=== PATIENT | female | born 1990 | race Caucasian/White ===

== ENCOUNTER → 2021-09-28 15:33 | Outpatient (CLI) | payer BC, SELFPAY ==
--- NOTE | ~2021-09-28 | US_ITS ---
EXAMINATION: US OB transvaginal EXAM DATE: 09/28/2021 15:58 INDICATION: Uncertain dates. 1st trimester. TECHNIQUE: Pelvic obstetrical transvaginal sonogram was performed by a technologist. There are [facility] grayscale and Doppler images available for interpretation. There are no earlier studies of this gestation for comparison. FINDINGS: Uterus measures 6.4 x 4.9 x 5.0 cm. There is intrauterine gestation sac. pole with heart rate confirmed at 169 beats per minute. The 1.6 cm crown-rump length corresponds to estimated gestational age by ultrasound of 8 weeks 0 days, estimated date of confinement 05/10. Yolk sac is id entified. There is no sonographic evidence of subchorionic hemorrhage. The ovaries are morphologi toan normal. IMPRESSION: Live intrauterine gestation, age by ultrasound 8 weeks 0 days. Reviewed, dictated and finalized at location B.
== END ==
PROVIDERS: Visit Provider Obstetrics & Gynecology Gynecology
DX: Z36.9 Encounter for antenatal screening, unspecified (principal); Z3A.08 8 weeks gestation of pregnancy
CPT/HCPCS: 76817

== ENCOUNTER 2021-12-12 14:45 | Outpatient (CLI) | payer BC, SELFPAY ==
--- NOTE | ~2021-12-12 | US_ITS ---
US OB /maternal detail DATE: 12/12/2021 15:46 INDICATION: anatomy screen TECHNIQUE: anatomy screen COMPARISON: Real-time imaging and Doppler analysis FINDINGS: Live hendrix intrauterine gestation, fetus in longitudinal lie, breech presentation with heart rate of 148 bpm. Anterior placenta, lower margin 5.7 cm above the cervix. Subjectively normal amount of amniotic fluid. cerebral ventricles, cerebellum, cisterna magna and nuchal fold appear normal. The spine is intact on transverse and longitudinal images. upper lip is normal. Four-pankaj bc heart with normal left and right ventricular outflow tracts. Intact diaphragm. Fluid is demonstrated in the stomach and urinary bladder. The kidneys are unremarkable wi thout hydronephrosis. Three-vessel umbilical cord with normal insertion. Normal extremities Biparietal diameter 4.30 cm; 19 weeks 0 days Head circumference 16.21 cm; 19 weeks 0 days Abdominal circumference 14.38 cm; 19 weeks 5 days Femur length 2.79 cm; 18 weeks 4 days Composite age by Hadlock formula is 19 weeks 1 day +/- 1 week 2 days with COMPA of 05/07/2022, compared to 05/10/2022 by LMP. Estimated weight is 275.9 +/- 41.4 g. Head circumference/abdominal circumference 1.13, within normal range of 1.09-1.26 Femur length/head circumference 17.19, within normal range of 16.205 and 18.51 IMPRESSION: Normal anatomy screen Breech presentation Estimated gestational age is 19 weeks 1 day +/- 1 week 2 days with COMPA of 05/07/2022 Reviewed, dictated and finalized at Location A. Reviewed, dictated and finalized at location B.
== END 2021-12-12 14:46 ==
PROVIDERS: PCP Nurse Practitioner; Visit Provider Nurse Practitioner
DX: Z36.9 Encounter for antenatal screening, unspecified (principal); Z3A.19 19 weeks gestation of pregnancy
CPT/HCPCS: 76805

== ENCOUNTER 2022-02-10 12:49 | Outpatient (RCR) | payer BC, SELFPAY ==
[2022-02-10 14:29] LABS: Hematocrit 33.9 % (37.0-47.0); Hemoglobin 11.8 g/dL (12.0-15.0)
[2022-02-10 14:43] LABS: Glucose 1 Hour PP 50gm Dose 134 mg/dL
[2022-02-10 15:00] LABS: Vitamin D 25 Hydroxy 61.5 ng/mL
[2022-02-10 15:25] LABS: HIV 1/2 Ab P24 Ag Result Negative (Negative)
[2022-02-10] MEDS: RHO(D) IMMUNE GLOBULIN 300 MCG/2 ML SYRINGE IM (17:02)
== END 2022-05-11 23:59 | disposition home or self-care (01) ==
LOC: ANHLAB 12:49
PROVIDERS: PCP Obstetrics & Gynecology Gynecology; Visit Provider Obstetrics & Gynecology Gynecology
DX: Z11.4 Encounter for screening for human immunodeficiency virus [HIV] (principal); Z29.13 Encounter for prophylactic Rho(D) immune globulin; O36.0190 Maternal care for anti-D [Rh] antibodies, unspecified trimester, not applicable or unspecified; Z3A.00 Weeks of gestation of pregnancy not specified
CPT/HCPCS: 36415; 82306; 82947; 85014; 85018; 85461; 86703; 90384; 96372; G0432; J2790

== ENCOUNTER 2022-02-24 07:15 | Outpatient (CLI) | payer BC, SELFPAY ==
[2022-02-24 07:44] LABS: Glucose Fasting Gestational 88 mg/dL (>/=95)
[2022-02-24 09:20] LABS: Glucose 1 Hour Gest 173 mg/dL (>/=180)
[2022-02-24 10:10] LABS: Glucose 2 Hour Gest 138 mg/dL (>/= 155)
[2022-02-24 11:55] LABS: Glucose 3 Hour Gest 116 mg/dL (>/=140)
== END 2022-02-24 07:16 | disposition home or self-care (01) ==
LOC: ANHLAB 07:17
PROVIDERS: PCP Obstetrics & Gynecology Gynecology; Visit Provider Obstetrics & Gynecology Gynecology
DX: O99.810 Abnormal glucose complicating pregnancy (principal); Z3A.00 Weeks of gestation of pregnancy not specified
CPT/HCPCS: 36415; 82951; 82952

== ENCOUNTER → 2022-03-23 13:32 | Outpatient (CLI) | payer BC, SELFPAY ==
--- NOTE | ~2022-03-23 | US_ITS ---
EXAMINATION: US OB follow up DATE: 03/23/2022 13:58 INDICATION: Size greater than dates. TECHNIQUE: Multiple obstetric sonographic images performed. FINDINGS: Comparison to multiple prior studies sequentially, with oldest reviewed study dated 022. There is a single living fetus in vertex presentation. The placenta is anterior without placenta pre via. Placental margin is a 0.9 cm to the cervix Amniotic fluid volume is normal. NIELS measures 17.6 cm cm. cardiac activity and movement is noted with a heart rate of beats per minute. The following biometric data were obtained: BPD: 88mm corresponds to gestational age 35 weeks 3 days. Head circumference: 319 mm corresponds to gestational age 36 weeks 0 days. Abdominal circumference: 306 mm corresponds to gestational age 34 weeks 4 days. Femur length: 63 mm corresponds to gestational age 32 weeks 5 days. Head circumference to abdominal circumference ratio: 1.04 (normal range for expected gestational age is 0.93-1.11). Estimated weight: 2396 grams +/- 359 grams using Hadlock method, 76.7% by Hadlock method. IMPRESSION: 1: Single living intrauterine with an estimated gestational age of 33weeks 1days by initial ultrasound measurements, with an EDC of 05/10/2022 in vertex presentation. Estimated weight wi thin normal limits measuring 76.7% by Hadlock method. 2: Normal NIELS measures 17.6 cm. Reviewed, dictated and finalized at location A. IMPRESSION: 1: Single living intrauterine with an estimated gestational age of 33 weeks 1days by initial ultrasound measurements, with an EDC of 05/10/2022 in ve rtex presentation. Estimated weight within normal limits measuring 76.7% by Hadlock method. 2: Normal NIELS measures 17.6 cm.
== END ==
PROVIDERS: PCP Obstetrics & Gynecology Gynecology; Visit Provider Obstetrics & Gynecology Gynecology
DX: O36.63X0 Maternal care for excessive fetal growth, third trimester, not applicable or unspecified (principal); Z3A.00 Weeks of gestation of pregnancy not specified
CPT/HCPCS: 76816

== ENCOUNTER 2022-05-04 04:45 | Inpatient (IN) | payer BC, SELFPAY ==
[2022-05-04] VITALS (84 sets, daily range): BP systolic 93–157; BP diastolic 31–98; PULSE 68–117; TEMP 36.2–37.2; O2SAT 93–100; BMI 42.1
--- NOTE | 2022-05-04 05:08 | LDADM ---
This patient, Elaine Cuellar, was admitted to Labor/Delivery/Recovery 103 on 05/04/22 at 04:45. Plans for labor, pain management and were discussed with patient. Patient/family oriented to hospital policies and general routines including ID bracelet, bed and alarms, visiting hours, pain management, procedures, bathroom and other care routines, personal items, smoking policy, room service/diet and guest tray routines, infant security routines, and visiting hours. Patient/Family are encouraged to report perceived risks to care and to ask questions if they do not understand what they are told or what they should do. See OBIX for further documentation.
[2022-05-04] MEDS: LACTATED RINGERS 1,000 ML 125 ML IV CONT ×3 (05:39→23:35)
[2022-05-04] MEDS: OXYTOCIN 30 UNITS/NS 500 ML 30 UNITS/500 ML BAG 6 UNITS IV CONT (05:40)
[2022-05-04 05:48] LABS: Basophils Percent Auto 0.3 % (0.2-1.2); Eosinophils Absolute Auto 0.1 K/mm3 (0-0.3); Eosinophils Percent Auto 0.9 % (0-4.4); Hematocrit 34.6 % (37.0-47.0); Immature Granulocyte Absolute 0.08 K/mm3 (0.00-0.031); Immature Granulocyte Percent A 0.8 % (0-0.5); Lymphocytes Absolute Auto 2.31 K/mm3 (0.9-3.2); Lymphocytes Percent Auto 22.7 % (18.3-44.2); Mean Corpuscular HGB Conc 34.7 g/dl (32-36); Mean Corpuscular Hemoglobin 29.5 pg (26-34); Mean Platelet Volume 10.5 fl (7.4-10.4); Monocytes Absolute Auto 0.9 K/mm3 (0.1-0.6); Monocytes Percent Auto 9.1 % (2.6-8.5); Neutrophils Absolute Auto 6.7 K/mm3 (1.3-6.7); Neutrophils Percent Auto 66.2 % (45.5-73.1); Platelet Count Result 215 k/mm3 (150-375); Red Blood Count 4.07 M/mm3 (4.2-5.4); Red Cell Distribution Width 13.2 % (11.5-14.5); White Blood Count 10.2 K/mm3 (4.5-10.0)
--- NOTE | 2022-05-04 05:56 | WPDANESEPP ---
Anes - Eval Pre Procedure Procedure: Labor epidural Date/Time: 05/04/22 05:56 Surgeon: Anita Preop Diagnosis: Abdominal pain with contractions Pre Op Diagnosis: IOL Patient Data Age: 32 Gender: F Height: 1.68 m Weight: 118.5 kg Last Vital Signs Pulse 99 05/04/22 05:45 BP 140/90 05/04/22 05:45 O2 Del Method Room Air 05/04/22 05:07 Allergies Allergy/AdvReac Type Severity Reaction Status Date / Time No Known Allergies Allergy Verified 04/06/22 13:31 Home Medications Medication Instructions Recorded Confirmed Type cholecalciferol (vitamin D3) 50 50 unit PO KVO 04/06/22 04/06/22 History mcg (2,000 unit) tablet (Vitamin D3) levothyroxine 25 mcg tablet 25 mcg PO DAILY 04/06/22 04/06/22 History prenat.vits,bienvenido,fwi-sxso-nwsui 1 tablet PO DAILY 04/06/22 04/06/22 History Laboratory Tests 05/04/22 05/04/22 04:56 04:57 WBC 10.2 K/mm3 H K/mm3 (4.5-10.0) RBC 4.07 M/mm3 L M/mm3 (4.2-5.4) Hgb 12.0 g/dL g/dL (12.0-15.0) Hct 34.6 % L % (37.0-47.0) MCV 85.0 fl fl (80-100) MCH 29.5 pg pg (26-34) MCHC 34.7 g/dl g/dl (32-36) RDW 13.2 % % (11.5-14.5) Plt Count 215 k/mm3 k/mm3 (150-375) MPV 10.5 fl H fl (7.4-10.4) Immature Gran % (Auto) 0.8 % H % (0-0.5) Neut % (Auto) 66.2 % % (45.5-73.1) Lymph % (Auto) 22.7 % % (18.3-44.2) [place] % (Auto) 9.1 % H % (2.6-8.5) Eos % (Auto) 0.9 % % (0-4.4) Baso % (Auto) 0.3 % % (0.2-1.2) Lymph # (Auto) 2.31 K/mm3 K/mm3 (0.9-3.2) [place] # (Auto) 0.9 K/mm3 H K/mm3 (0.1-0.6) Eos # (Auto) 0.1 K/mm3 K/mm3 (0-0.3) Baso # (Auto) 0.0 K/mm3 K/mm3 (0.0-0.1) Abs Immat Gran (auto) 0.08 K/mm3 H K/mm3 (0.00-0.031) Absolute Neuts (auto) 6.7 K/mm3 K/mm3 (1.3-6.7) Absolute Nucleated RBC 0.0 K/mm3 K/mm3 (0.0-0.012) Nucleated RBC % 0.0 % % (0.0-0.2) RPR Pending : gestational age HCG: positive Patient hx anesthesia problems: none Family hx anesthesia problems: none Results Review: All pre-operative results and documents have been reviewed as part of the pre-operative evaluation. [facility] Past Medical History Medical History Diabetes in Hypothyroidism Kidney stones Morbid obesity Family History Family History Grandparent Lung cancer Diabetes mellitus Colon cancer Mother Hypertension Sibling Hypertension Father Diabetes mellitus Grandparent Pancreatic cancer Grandparent Pancreatic cancer Social History Social History Smoking status: Never smoker Second hand tobacco smoke exposure: No Substance use: never Lack of Transportation: No Lack of Food: Never True Current Housing: I Have Housing Concerned About Future Housing: No Difficulty Paying Gas/Electric Bills: No Difficulty Paying for Meds: No Currently Unemployed: No Education: Bachelor's Degree Difficulty w/ Childcare or Family Care: No Spiritual care concerns: No Exam Day of Procedure 05/04/22 05:56 Patient weight: morbidly obese Airway: Mallampati scale class II
--- NOTE | 2022-05-04 07:29 | WPDOBADMIT ---
Obstetrics - Admit Note Admission Note: record reviewed. No pertinent additions to the history and/or any subsequent changes in the physical findings that are not consistent with the expected course of the were found. Additions to the history and/or subsequent changes in the physical findings follow. Here for MIL at 39 wks. Cervix 150/-2 AROM with clear fluid. FHTs reactive. Continue Pitocin.
--- NOTE | 2022-05-04 12:40 | PM.OBPNLAB ---
Pain Control Date/time seen: 05/04/22 12:40 Comments: RN with odd vaginal exam bedside u/s verified vertex. Pelvic Exam Dilation (cm): 2 Effacement (%): 50 station: -2 Amniotic membrane status: Ruptured Comments: rectum full of hard stool Status status: Category l
[2022-05-04 13:35] LABS: Rapid Plasma Reagin Non-Reactive (NonReactive)
[2022-05-05] VITALS (128 sets, daily range): BP systolic 96–142; BP diastolic 45–109; PULSE 44–129; RESP 16–18; TEMP 36.6–37.3; O2SAT 70–100
[2022-05-05] MEDS: AMPICILLIN 2 GM/NS 100 ML 2 GM/100 ML BAG IVPB (01:00)
[2022-05-05] MEDS: AMPICILLIN 1 GM/NS 50 ML 1 GM/50 ML BAG IVPB (05:03)
[2022-05-05] MEDS: OXYTOCIN 30 UNITS/NS 500 ML 30 UNITS/500 ML BAG 6 UNITS IV CONT (05:10)
--- NOTE | 2022-05-05 06:11 | P.PCNOB_ITS ---
OB - Delivery Note Procedure Delivery date: 05/05/22 Procedure: Induction method: AROM, Per Pitocin Protocol and Per Cervidil Protocol Delivery monitor: External FHT and Internal Uterine Route of delivery: Laceration Description: Perineal - 2nd Degree Delivery repair: vicryl (3-0) Specimen: No Quantitative Blood Loss (ml): 450 Anesthesia type: Epidural Disposition: Floor [place] Baby Date of : 05/05/22 Weeks of gestation at delivery: 39 Infant gender: Male Weight (pounds): 8 Weight (ounces): 15 presentation: vertex position: Right Occiput Anterior Placenta delivery description: Spontaneous Cord Vessel Description: 3 Vessels score one minute: 8 score five minutes: 9
--- NOTE | 2022-05-05 06:12 | PM.OBDSVD ---
DS: Admitting Diagnosis Discharge Date 05/06/22 Admitting Diagnosis IUP 39 wks for MIL DS: Discharge Diagnosis Discharge Diagnosis (1) (normal spontaneous vaginal delivery): Code(s): O80 - Encounter for full-term uncomplicated delivery Status: Acute OB - DS: Summary OB Procedures : Ultrasound OB Procedures Intrapartum: Spontaneous Vag Delivery OB Procedures: : None Peripartum Data Delivery Method: Natural Vaginal Laceration Description: Perineal - 2nd Degree complications: none Status at Discharge Functional status at discharge: independent ambulation Overall status at discharge: patient is progressing back to baseline Time Spent with Patient Time attestation: Total time spent providing and/or coordinating discharge services: DS: Data Data Completed and Pending Labs on day of discharge: Labs from last 24 hours 05/04/22 05/04/22 04:57 04:57 RPR Non-reactive Blood Type O Negative Antibody Screen Negative Discharge Plan Discharge Attending physician on discharge: Candace Howard Discharging Clinician: Sadaf Silver Anticipated Discharge Date/Time: 05/07/22 06:12 Patient Disposition: Home, Self-Care Activity: may shower, may drive after 2 weeks and pelvic rest Diet: regular Discharge Instructions: Education: Mom and Baby Guide Given to: Mother Follow-Up: Call your delivering provider's office for an appointment to be seen in: 6 Weeks Mom and baby should come to the [facility] for the follow-up appointment. Appointment Date/Time: May 08, 2022 at 8:00 am What to expect at your follow-up visit: Call [phone] if you are unable to keep your appointment time. BREAST CARE: * Wear a snug supportive bra. * For engorgement discomfort: Bottle Feeding: * May apply ice packs EPISIOTOMY/PERINEAL CARE: * Until bleeding stops, use your ivette bottle after urinating * Change your pad frequently throughout the day * You may take sitz baths several times a day (fill your bathtub with warm water and soak for 20 minutes.) Do NOT bathe in the water * No tub baths until seen by your physician - You may shower ACTIVITY: * Rest as much as possible. * Do not exercise or lift anything heavier than your baby (such as laundry or other children.) * Avoid stairs or driving as much as possible. * Do not put anything into the vagina. No douching, tampons, or sexual activity until seen by physician. NOTIFY PHYSICIAN IF YOU HAVE ANY QUESTIONS OR IF ANY OF THE FOLLOWING SYMPTOMS OCCUR: * If your episiotomy or incision becomes red, swollen, or more painful than what you have experienced in the hospital. * If your vaginal bleeding becomes foul smelling. * If your vaginal bleeding becomes more heavy than a period or if your bleeding changes from pink to bright red. However, you may pass an occasional walnut-sized clot once or twice for the first week . * If you experience a sharp, shooting pain in you calves. * If you discover a hard, reddened area on your breast or if you experience flu-like symptoms. DIET: * Eat regular, well-balanced meals. * Drink plenty of fluids daily. If , drink to thirst. Stand Alone Forms: General Discharge Information Follow-up/Referrals: Candace Howard MD [Physician] - 6 Weeks Discharge Medications: New polysaccharide iron complex 150 mg iron Capsule 150 mg PO BIDWM 30 Days Qty: 60 0RF docusate sodium 100 mg Capsule 100 mg PO BID PRN (Reason: Constipation) 30 Days Qty: 60 0RF ibuprofen 600 mg Tablet 600 mg PO Q6H PRN (Reason: Cramping) 14 Days Qty: 30 0RF Continued levothyroxine 25 mcg Tablet 25 mcg PO DAILY prenat.vits,bienvenido,egi-ehmk-qqmim Tablet 1 tablet PO DAILY cholecalciferol (vitamin D3) [Vitamin D3] 50 mcg (2,000 unit) Tablet 50 unit PO KVO Date of admission:
[2022-05-05] MEDS: MULTIVIT/MIN/PREN/FOL AC/IRON TABLET 1 TAB PO (10:36)
[2022-05-05] MEDS: DIBUCAINE 1% OINTMENT 30 GM TUBE 1 APPLIC TOPICAL (10:36)
[2022-05-05] MEDS: DOCUSATE SODIUM 100 MG CAPSULE PO (10:36)
[2022-05-05] MEDS: POLYSACCHARIDE IRON COMPLEX 150 MG CAPSULE PO (10:36)
[2022-05-05] MEDS: LEVOTHYROXINE SODIUM 25 MCG TABLET PO (10:41)
[2022-05-05] MEDS: IBUPROFEN 600 MG TABLET PO ×2 (14:22→20:35)
[2022-05-05] MEDS: ACETAMINOPHEN 325 MG TABLET 650 MG PO (20:36)
[2022-05-06] VITALS: BP 140/81; PULSE 89; RESP 18; TEMP 36.3; O2SAT 98
[2022-05-06] MEDS: ACETAMINOPHEN 325 MG TABLET 650 MG PO (04:48)
[2022-05-06] MEDS: IBUPROFEN 600 MG TABLET PO (04:49)
[2022-05-06 04:50] VITALS: BP 112/70; PULSE 76; RESP 18; TEMP 35.7; O2SAT 100
[2022-05-06 05:19] LABS: Hematocrit 24.7 % (37.0-47.0); Hemoglobin 8.5 g/dL (12.0-15.0)
--- NOTE | 2022-05-06 08:59 | WPDANLDPN2 ---
Anes-Prog Note L&D Date/Time: 05/06/22 08:59 Comfortable throughout: labor and delivery Neuraxial method: epidural Epidural/Spinal procedure site: clean & non-tender Neuro status: Neuro function grossly intact. Cardiovascular status: normal Respiratory status: normal Airway patency: baseline Mental status: baseline Post-Op hydration status: normal Vital Signs: Last Vital Signs Temp 35.7 C L 05/06/22 04:50 Pulse 76 05/06/22 04:50 Resp 18 05/06/22 04:50 BP 112/70 05/06/22 04:50 Pulse Ox 100 05/06/22 04:50 O2 Del Method Room Air 05/05/22 20:15 Pain score (VAS): 2/10 Post-procedural complaints: none Patient feedback: Patient satisfied with anesthetic care.
[2022-05-06 09:45] VITALS: BP 116/78; PULSE 80; RESP 18; TEMP 36.3; O2SAT 98
--- NOTE | 2022-05-06 10:23 | PM.OBPNVD ---
OB - PN: Subj Subjective Date/time seen: 05/06/22 0820 Patient comments: no complaints and pain well controlled baby status: doing well and bottle feeding well feeding status: exclusively bottle feeding OB - PN: Obj Data Labs CBC & Chem 7: 05/06/22 04:51 Labs: Laboratory Results - last 24 hr 05/06/22 04:51 Hgb 8.5 L D Hct 24.7 L OB - PN A/P Plan day: 1 Plan: discharge home Comments: Pt desires discharge home today. Time Spent With Patient Time: Total time spent is greater than 50% in coordination of care (as documented) at patient's floor/unit and/or counseling patient: Review of Systems Review of Systems: All systems reviewed & are unremarkable except as noted in HPI and below Exam Narrative: Some mild range blood pressures. Const: General: healthy appearing and no acute distress Orientation/consciousness: patient oriented x3 Limitations: no limitations Resp: Effort & Inspection: normal respiratory effort Auscultation: clear to auscultation bilaterally Cardio: Rate: regular rate GI: Inspection: normal to inspection : Other: Fundus firm and 2 below U Neuro: General: patient oriented x3 Extrem: General: normal to inspection Psych: Appearance: grossly normal Mental Status: mental status grossly normal Affect: normal affect Thought process: Normal thought process present
--- NOTE | 2022-05-06 10:25 | P.DS_ITS ---
DS: Admitting Diagnosis Discharge Date 05/06/22 Admitting Diagnosis IUP at 39 weeks Elective iOL DS: Discharge Diagnosis Discharge Diagnosis (1) (normal spontaneous vaginal delivery): Code(s): O80 - Encounter for full-term uncomplicated delivery Status: Acute DS: Summary Hospital Course Reason for hospitalization: Childbirth Hospital Course: Uncomplicated Time Spent with Patient Time attestation: Total time spent providing and/or coordinating discharge services: Exam Narrative: Some mild range blood pressures. Const: General: healthy appearing and no acute distress Orientation/consciousness: patient oriented x3 Limitations: no limitations Resp: Effort & Inspection: normal respiratory effort Auscultation: clear to auscultation bilaterally Cardio: Rate: regular rate GI: Inspection: normal to inspection : Other: Fundus firm and 2 below U Neuro: General: patient oriented x3 Extrem: General: normal to inspection Psych: Appearance: grossly normal Mental Status: mental status grossly normal Affect: normal affect Thought process: Normal thought process present DS: Data Data Completed and Pending Labs on day of discharge: Labs from last 24 hours 05/06/22 04:51 Hgb 8.5 L D Hct 24.7 L Discharge Plan Discharge Attending physician on discharge: Candace Howard Discharging Clinician: Sadaf Silver Anticipated Discharge Date/Time: 05/07/22 06:12 Patient Disposition: Home, Self-Care Activity: may shower, may drive after 2 weeks and pelvic rest Diet: regular Patient Instructions: Antibiotic Form Stand Alone Forms: General Discharge Information Follow-up/Referrals: Candace Howard MD [Physician] - 6 Weeks Discharge Medications: New polysaccharide iron complex 150 mg iron Capsule 150 mg PO BIDWM 30 Days Qty: 60 0RF docusate sodium 100 mg Capsule 100 mg PO BID PRN (Reason: Constipation) 30 Days Qty: 60 0RF ibuprofen 600 mg Tablet 600 mg PO Q6H PRN (Reason: Cramping) 14 Days Qty: 30 0RF Continued levothyroxine 25 mcg Tablet 25 mcg PO DAILY #2 Tablet 1 tablet PO DAILY cholecalciferol (vitamin D3) [Vitamin D3] 50 mcg (2,000 unit) Tablet 50 unit PO KVO Date of admission: 05/04/22 04:45 Primary Care Provider: PHYSICIAN,[employer] Admitting Provider: Candace Howard Attending physician on admission: Candace Howard Condition: Stable
[2022-05-08 07:53] VITALS: BP 123/79; PULSE 69; RESP 20; TEMP 36.6; O2SAT 99
== END 2022-05-06 13:12 | disposition home or self-care (01) | DRG 807 ==
LOC: ANHLDR 05-05 06:13 → ANHOBPP 05-05 08:52 → ANHOB2 05-05 20:19
PROVIDERS: Admitting Provider Obstetrics & Gynecology Gynecology; Visit Provider Obstetrics & Gynecology Gynecology
DX: O76 Abnormality in fetal heart rate and rhythm complicating labor and delivery (principal); Z37.0 Single live birth; O70.1 Second degree perineal laceration during delivery; Z3A.39 39 weeks gestation of pregnancy; O42.92 Full-term premature rupture of membranes, unspecified as to length of time between rupture and onset of labor
CPT/HCPCS: 36415; 85014; 85018; 85025; 86592; 86850; 86900; 86901; A9270; J0290; J2590; J2795; J7120

== ENCOUNTER 2025-04-17 09:36 | Outpatient (CLI) | payer BC, SELFPAY ==
--- NOTE | ~2025-04-17 | US_ITS ---
EXAMINATION: US pelvic complete w TV INDICATION: Abnormal uterine bleeding TECHNIQUE: Multiple transabdominal and transvaginal sonographic images of the pelvis were obtained. COMPARISON: None. FINDINGS: Uterus: The uterus appears normal in size, shape, and position. There is present in the endometrial cavity. The endometrium appears normal, with a thickness of 7 mm. Right Ovary: The right ovary appears normal. Vascular flow is present. Left Ovary: The left ovary appears normal.. Vascular flow is present. Multiple bilateral normal ovarian follicles are seen. There is no free fluid in the pelvis. IMPRESSION: Normal pelvic ultrasound.. Reviewed, dictated and finalized at location A. IMPRESSION: Normal pelvic ultrasound..
== END 2025-04-17 09:37 | disposition home or self-care (01) ==
LOC: MICIMG 09:38
DX: N93.8 Other specified abnormal uterine and vaginal bleeding (principal); Z97.5 Presence of (intrauterine) contraceptive device
CPT/HCPCS: 76830; 76856